=== PATIENT | male | born 1980 | race Caucasian/White ===

== ENCOUNTER 2017-05-17 15:58 | Emergency (ER) | payer OTHER ==
[2017-05-17 16:16] VITALS: BP 133/84
--- NOTE | 2017-05-17 16:22 | ED Physician Documentation ---
History of Present Illness - Stated complaint Stated Complaint: BEE STING - Chief complaint Chief Complaint: Allergic Rx - History obtained from History obtained from: Patient - History of Present Illness Timing: Other (36-year-old gentleman with history of anaphylaxis to bee stings, received allergy therapy. He has not been stung a long time and he was stung to the right middle finger about half an hour ago and had immediately flushed feeling throughout his body but that is all gone. There is no associated generalized rash or shortness of breath. He still has pain and swelling in the right middle finger, but no other ongoing symptoms.) Review of Systems Constitutional: reports: Reviewed and negative Cardiac: reports: Reviewed and negative Respiratory: reports: Reviewed and negative PD PAST MEDICAL HISTORY - Present Medications Home Medications: Ambulatory Orders Medication Instructions Recorded Confirmed No Known Home Medications [No 05/17/17 05/17/17 Known Home Medications] - Allergies Allergies/Adverse Reactions: Allergies Allergy/AdvReac Type Severity Reaction Status Date / Time No Known Drug Allergies Allergy Verified 05/17/17 16:16 PD ED PE NORMAL - Vitals Vital signs reviewed: Yes - General General: Alert and oriented X 3, No acute distress - HEENT HEENT: Pharynx benign - Respiratory Respiratory: No respiratory distress, Clear bilaterally - Extremities Extremities: Other (Angioedema of the middle finger back to the PIP only without visible stinger in place. This is of the third right finger.) - Neuro Neuro: Alert and oriented X 3, Normal speech - Psych Psych: Normal mood, Normal affect Results - Vitals Vitals: Vital Signs - 24 hr 05/17/17 16:11 Temperature 37.1 C Heart Rate 69 Respiratory 16 Rate Blood Pressure 133/84 H O2 Saturation 100 PD MEDICAL DECISION MAKING - ED course ED course: He was observed in the emergency department without any symptoms of anaphylaxis. He received oral Benadryl. The patient was counseled as to the diagnosis and need for follow-up. I counseled the patient with regard to signs and symptoms that would necessitate an urgent reevaluation in the emergency department. They understand they are welcome to return at any time if worse or if not improving as expected. This document was made in part using voice recognition software. While efforts are made to proofread this documents, sound alike and grammatical errors may occur. Departure - Departure Disposition: 01 Home, Self Care Clinical Impression: Local reaction to bee sting Qualifiers: Encounter type: initial encounter Injury intent: accidental or unintentional Qualified Code(s): T63.441A - Toxic effect of venom of bees, accidental ( unintentional), initial encounter Condition: Good Record reviewed to determine appropriate education?: Yes Instructions: ED Bite Sting Insect Local Allergic React Comments: Call your doctor to arrange a follow-up appointment, make the next available appointment. In the interim, return anytime if worse or if new symptoms develop. Your blood pressure was elevated today on check into the emergency department. This does not mean that you have hypertension, it is a common phenomenon to come to the emergency department and have elevated blood pressure. I recommend that she see your primary care physician within the week to have it rechecked when you are feeling better. Discharge Date/Time: 05/17/17 16:57
[2017-05-17] MEDS: diphenhydrAMINE 25 MG CAPSULE PO STA (16:30)
[2017-05-17] MEDS ORDERED: diphenhydrAMINE 25 MG CAPSULE PO ONE (16:33)
== END 2017-05-17 16:57 | disposition home or self-care (01) ==
LOC: ED 15:58
DX: T63.441A Toxic effect of venom of bees, accidental (unintentional), initial encounter (principal); R22.9 Localized swelling, mass and lump, unspecified; R03.0 Elevated blood-pressure reading, without diagnosis of hypertension
CPT/HCPCS: 99282; 99283

== ENCOUNTER 2017-10-28 16:13 | Outpatient (CLI) | payer OTHER | END 2017-10-28 16:14 | disposition EMS.NT | LOC: EMS 16:13 | PROVIDERS: ATTEND Surgery | DX: M25.531 Pain in right wrist (principal); V43.52XA Car driver injured in collision with other type car in traffic accident, initial encounter; Y92.414 Local residential or business street as the place of occurrence of the external cause ==

== ENCOUNTER 2017-10-28 17:25 | Emergency (ER) | payer OTHER ==
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
[2017-10-28] MEDS ORDERED: IBUPROFEN 600 MG TABLET PO STA (18:39)
[2017-10-28] MEDS ORDERED: ACETAMINOPHEN 325 MG TABLET PO STA (18:39)
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
[2017-10-28 20:15] VITALS: BP 134/82
== END 2017-10-28 20:14 | disposition home or self-care (01) ==
LOC: ED 17:25
DX: S63.501A Unspecified sprain of right wrist, initial encounter (principal); S20.211A Contusion of right front wall of thorax, initial encounter; V43.52XA Car driver injured in collision with other type car in traffic accident, initial encounter; Y92.410 Unspecified street and highway as the place of occurrence of the external cause
CPT/HCPCS: 71046; 73110; 99283; 99284; A9270; 93005